=== PATIENT | female | born 1950 | race Caucasian/White ===

== ENCOUNTER → 2018-10-01 | Outpatient (CLI) | payer MEDICARE ==
--- NOTE | 2018-10-02 14:29 | MM ---
Reason for exam: screening (asymptomatic). Last mammogram was performed 3 years ago. History: Patient is postmenopausal. Family history of breast cancer in maternal aunt at age 65. Benign cyst aspiration of the left breast, December 18, 2000. Cyst aspiration of the left breast. Physical Findings: A clinical breast exam by your physician is recommended on an annual basis and results should be correlated with mammographic findings. MG 3D Screening Mammo W/Cad Bilateral CC and MLO view(s) were taken. Prior study comparison: October 13, 2015, bilateral MG screening mammo w CAD. June 29, 2014, bilateral MG screening mammo w CAD. The breast tissue is heterogeneously dense. This may lower the sensitivity of mammography. No suspicious abnormality. No significant changes when compared with prior studies. ASSESSMENT: Negative, BI-RAD 1 RECOMMENDATION: Routine screening mammogram of both breasts in 1 year.
== END | disposition home or self-care (01) ==
LOC: RADMAMWWP 08:04
PROVIDERS: ATTEND Internal Medicine
DX: Z12.31 Encounter for screening mammogram for malignant neoplasm of breast (principal)
CPT/HCPCS: 77063; 77067

== ENCOUNTER → 2019-07-18 | Outpatient (CLI) | payer MEDICARE ==
--- NOTE | 2019-07-18 16:31 | CT ---
EXAMINATION TYPE: CT wrist RT wo con DATE OF EXAM: 07/18/2019 COMPARISON: Plain film not submitted HISTORY: Right wrist pain after fall. CT DLP: 148.6 mGycm Automated exposure control for dose reduction was used. Helical imaging through the right wrist, thre e-dimensional reconstructions as well as coronal and sagittal reconstructions. FINDINGS: There is a comminuted intra-articular displaced distal right radial fracture. Comminuted distal ulnar fracture also present. There is associated soft tissue swelling present. IMPRESSION: DISTAL RADIUS AND ULNAR FRACTURES.
== END | disposition home or self-care (01) ==
LOC: RADCTMAIN 15:25
PROVIDERS: ATTEND Orthopaedic Surgery
DX: S52.201A Unspecified fracture of shaft of right ulna, initial encounter for closed fracture (principal); S52.501A Unspecified fracture of the lower end of right radius, initial encounter for closed fracture

== ENCOUNTER → 2019-07-23 | Outpatient (CLI) | payer MEDICARE | END | disposition home or self-care (01) | LOC: LABPAT 15:02 | PROVIDERS: ATTEND Orthopaedic Surgery | DX: Z01.818 Encounter for other preprocedural examination (principal) | CPT/HCPCS: 93005 ==

== ENCOUNTER 2019-07-25 10:54 | Day surgery (SDC) | payer MEDICARE ==
[2019-07-23 10:57] VITALS: BMI 29.2
[~2019-07-25 10:54] MED LIST: DEXAMETHASONE SOD PHOSPHATE 10 MG/ML 1 ML VIAL IV ONE; HYDROmorphone 0.5 MG/0.5 ML SYRINGE IVP PRN; LACTATED RINGERS 1,000 ML IV SCH; MIDAZOLAM 2 MG/2 ML VIAL IV PRN; ONDANSETRON 4 MG/2 ML VIAL IVP ONE
[2019-07-25] MEDS ORDERED: LIDOCAINE 1% 20 ML VIAL (10MG/ML) FOR IV START INTRADERMA ONE (11:25)
[2019-07-25] MEDS: fentaNYL (PF) 50 MCG/ML 2 ML AMP IVP ONE ×2 (11:40→11:48)
--- NOTE | 2019-07-25 12:04 | P.ANPRN ---
Procedure Note - Anesthesia - Nerve Block Performed Right Supraclavicular Single Time Out Performed: Yes Date of Procedure: 07/25/19 Procedure Start Time: 11:38 Procedure Stop Time: 11:48 Location of Patient Procedure: PreOp Indication: Acute Post-Operative Pain Specifically requested for management of pain by DrFeng: Jose Huerta Sedation Type: Sedate with meaningful contact maintained Position: Supine Catheter: None Needle Types: Pajunk Needle Gauge: 21 Ultrasound used to visualize needle placement: Yes Ultrasound used to observe medication spread: Yes Injectate: 0.5% Ropivacaine (see comment for volume) (20cc with 4mg decadron) Blood Aspirated: No Pain Paresthesia on Injection Noted: No Resistance on Injection: Normal Image Stored and Saved: Yes Events: Uneventful and Well Tolerated
[2019-07-25] MEDS ORDERED: ROPIVACAINE 5 MG/ML 30 ML VIAL ONE (12:22)
[2019-07-25] MEDS ORDERED: KETAMINE 10 MG/ML 20 ML VIAL ONE (12:22)
[2019-07-25] MEDS ORDERED: PROPOFOL 10 MG/ML 20 ML VIAL IV ONE (12:22)
[2019-07-25] MEDS ORDERED: MIDAZOLAM 2 MG/2 ML VIAL ONE (12:22)
[2019-07-25] MEDS ORDERED: fentaNYL (PF) 50 MCG/ML 2 ML AMP ONE (12:22)
[2019-07-25] MEDS ORDERED: BUPIVACAINE (PF) 0.5% 30 ML VIAL SQ ONE ×3 (12:53→15:51)
[2019-07-25] MEDS ORDERED: LIDOCAINE 1%-EPI 1:100,000 20 ML VIAL SQ ONE ×3 (12:53→15:51)
[2019-07-25] MEDS ORDERED: LACTATED RINGERS 1,000 ML IV ONE (14:50)
--- NOTE | 2019-07-25 15:53 | XR ---
EXAMINATION TYPE: XR wrist complete RT, FL guidance operating room DATE OF EXAM: 07/25/2019 CLINICAL HISTORY: Open reduction internal fixation of a right wrist fracture. Fluoroscopic documentat ion. TECHNIQUE: Fluoroscopy. COMPARISON: None. FINDINGS: Fluoroscopic guidance was provided during procedure performed by Dr. Huerta. A total of 1 minute and 44 seconds of fluoroscopic time was utilized during the procedure and 7 spot images w as acquired during open reduction internal fixation of right wrist fractures. IMPRESSION: As Above.
[2019-07-25 16:23] VITALS: TEMP 97.6
[2019-07-25 17:11] VITALS: PULSE 74; RESP 16
[2019-07-25 17:26] VITALS: BP 145/64
--- NOTE | 2019-07-25 17:46 | P.OP ---
Date of Procedure: 07/25/19 Preoperative Diagnosis: 1. Comminuted, intra-articular right distal radius fracture 2. Right ulnar neck fracture Postoperative Diagnosis: 1. Comminuted, intra-articular right distal radius fracture 2. Right ulnar neck fracture Procedure(s) Performed: 1. Open reduction and internal fixation of comminuted, intra-articular right distal radius fracture (greater than 3 parts) 2. Internal fixation of right ulnar neck fracture Implants: Biomet Crosslock DVR locking volar distal radius plate with locking and cortical screws; micro Acutrac screws (2) Anesthesia: MAC, regional, local Surgeon: Jose Huerta Powder Guard #1: Lupis Barnes IV fluids (ml): 10 Condition: stable Disposition: PACU Indications for Procedure: The patient is a very pleasant 69-year-old female who sustained a comminuted right distal radius fracture with an associated ulnar neck fracture after a mechanical fall. Treatment options (and associated risks and benefits) were discussed in the office and surgical treatment was recommended. In preop, additional questions were answered. She wished to proceed with surgery. Consent forms were signed. The operative site was confirmed and marked. Description of Procedure: The patient was administered a regional nerve block by the anesthesia team then brought to the operating suite. The patient was positioned supine with the operative limb on an arm board. All bony prominences were well padded. Monitored anesthesia was administered uneventfully. Prophylactic IV antibiotics were administered. A tourniquet was placed on the operative arm which was then prepped and draped in standard, sterile fashion. A timeout was performed, confirm patient identifiers, the operative side, sites and the procedures to be performed: All team members expressed agreement. The limb was exsanguinated with an Esmarch and the tourniquet was inflated. The fractures were assessed with intraoperative fluoroscopy. Comminution of the dorsal metaphysis and radial column was again noted. Fracture alignment im proved with manual reduction. A standard volar FCR approach was initially utilized. The skin was incised sharply and subcutaneous tissue were spread, coagulating superficial vessels as needed. The FCR sheath was incised and the tendon was mobilized. Blunt dissection proceeded down to the pronator quadratus. This was sharply released along its radial border and & elevated ulnarly. The fracture site was identified. There was a large longitudinal split running along the radial styloid and a transverse fracture across the metaphysis. There was a separate butterfly fragment involving the ulnar metaphysis below the lunate fossa. Manual reduction was attempted but residual deformity remained. The brachioradialis tendon was identified and released from its insertion to remove this as a deforming force, taking care to protect the first dorsal compartment tendons. A Carson elevator was inserted through the metaphyseal fracture site in an attempt to reduce the displaced dorsal fragments; however, this was unsuccessful and the decision was made to proceed with a secondary dorsal exposure. A midline longitudinal incision was marked over the dorsal wrist. The skin was sharply incised and full-thickness skin flaps were elevated. Superficial vessels were coagulated with electrocautery. A large displaced fragment involving Lilly's tubercle was identified protruding slightly through the extensor retinaculum. A longitudinal incision was made in the retinaculum. The EPL tendon was identified, entrapped within the fracture site below Lilly's fragment. The fragments were mobilized and the tendon was released. There was some mild fraying but but no obvious damage to the tendon substance. The frayed edges were trimmed. The dorsal fragments were manipulated and manually reduced. There was marked comminution of the metaphysis and the fracture was grossly unstable. A manual reduction maneuver was again repeated and good initial alignment was achieved and confirmed on imaging. Two 0.062 K wires were inserted percutaneously into the radial styloid and advanced across the metaphysis for provisional stability. A plate was selected, based on the patients anatomy and fracture pattern. This was positioned on the volar radius and provisionally pinned in place with K- wires. Its position was assessed on imaging and adjusted until satisfactory. A cortical screw was drilled, measured and inserted into the oblong hole of the shaft. Locking screws were drilled, measured and inserted distally, confirming length and trajectory with fluoroscopy. All provisional K-wires were removed. Two additional cortical screws were drilled and inserted to further secure the plate to the metaphysis. The wounds were irrigated and covered and attention was then turned to the distal ulna. Once the distal radius fracture was reduced and stabilized, the distal ulna fracture was nearly anatomically aligned. Residual displacement corrected with manual reduction. Small incisions were made just distal to the tip of the styloid and along the ulnar metaphysis. The subcutaneous tissues were bluntly spread to protect adjacent sensory nerves. Using fluoroscopic guidance, a K wire for an Acutrac headless compression screw was drilled across the fracture site and into the ulnar head through a soft tissue guide. A second K wire was inserted in a similar fashion down the styloid and into the metaphysis. Alignment and position of both wires was confirmed on imaging. The screw lengths were measured measured off the guidewires. The cannulated drill was inserted over the guidewires and advanced across the fracture site. The appropriate screws were selected and inserted over the guidewires. Final x-rays were obtained which revealed excellent reduction of both fractures with good latter-day of radial height, inclination and volar tilt as well as reduction of the DRUJ. A 20-degree inclined lateral view was obtained to confirm extra-articular screw placement. The wrist was then ranged under live fluoroscopy - no motion of the fracture fragments or fixation construct was appreciated (in the radius or ulna). The tourniquet was released after 120 minutes at 250 mmHg and was not used for the remainder the case. Hemostasis was obtained with electrocautery. The wounds were thoroughly irrigated with normal saline. The extensor retinaculum was repaired with interrupted 2-0 Vicryl sutures with the EPL tendon left superficial. Excellent excursion of the tendon was noted with passive motion. The pronator was loosely repaired over the plate with interrupted 2-0 Vicryl sut ures. The subcutaneous tissues dorsally and volarly were reapproximated with interrupted 3-0 Vicryl suture. The incisions were closed with interrupted 4-0 nylon suture. Local anesthetic with epinephrine was injected into the perioperative subcutaneous tissues for adjunctive postoperative pain control and hemostasis. A sterile dressing was applied followed by a resting volar splint. All sponge, n eedle and instrument counts were correct at the end of the case. The patient tolerated the procedure well and was taken to the recovery room in stable condition.
== END 2019-07-25 17:38 | disposition home or self-care (01) ==
LOC: OR 10:54
PROVIDERS: ATTEND Orthopaedic Surgery
DX: S52.571A Other intraarticular fracture of lower end of right radius, initial encounter for closed fracture (principal); S52.691A Other fracture of lower end of right ulna, initial encounter for closed fracture; I10 Essential (primary) hypertension; K21.9 Gastro-esophageal reflux disease without esophagitis; Z88.5 Allergy status to narcotic agent; Z87.891 Personal history of nicotine dependence; Z98.890 Other specified postprocedural states; Z79.899 Other long term (current) drug therapy; Z79.891 Long term (current) use of opiate analgesic; Z98.811 Dental restoration status; Z83.3 Family history of diabetes mellitus; W19.XXXA Unspecified fall, initial encounter; Y92.014 Private driveway to single-family (private) house as the place of occurrence of the external cause
CPT/HCPCS: 25609; 25652; 64415; 73110; C1713; J2250; J1100; J0690; J2405; J3010; J2795; J2704; 64413

== ENCOUNTER → 2019-08-04 | Outpatient (CLI) | payer MEDICARE | END | disposition home or self-care (01) | LOC: LABWHC1 13:04 | PROVIDERS: ATTEND Orthopaedic Surgery | DX: M25.531 Pain in right wrist (principal); S52.571D Other intraarticular fracture of lower end of right radius, subsequent encounter for closed fracture with routine healing; S52.691D Other fracture of lower end of right ulna, subsequent encounter for closed fracture with routine healing; Z48.89 Encounter for other specified surgical aftercare; E55.9 Vitamin D deficiency, unspecified | CPT/HCPCS: 36415; 82306 ==

== ENCOUNTER → 2019-10-06 | Outpatient (CLI) | payer MEDICARE ==
--- NOTE | 2019-10-06 09:46 | CT ---
EXAMINATION TYPE: CT wrist RT wo con DATE OF EXAM: 10/06/2019 COMPARISON: Preoperative CT of the right wrist 07/18/2019 HISTORY: Pain Rt Wirst CT DLP: 100.1 mGycm Automated exposure control for dose reduction was used. Unenhanced CT of the right wrist was performe d with bone and soft tissue window settings submitted. FINDINGS: Fixation plate and screws noted distal radius with 2 fixation screws within the distal ulna. There is disuse bony osteopenia identified. There is incomplete union noted at the metaphyseal component of t he distal radial fracture. Remaining fracture sites demonstrate the solid callus formation and approp riate healing. No acute fractures are identified at this time. IMPRESSION: 1. Cyst operative plate fixation distal radial fracture with screw fixation distal ulnar fracture. As noted there is disuse osteopenia. Incomplete union noted at the metaphyseal component of the distal radial fracture.
== END ==
LOC: RADCTMAIN 08:38
PROVIDERS: ATTEND Orthopaedic Surgery
DX: S52.501D Unspecified fracture of the lower end of right radius, subsequent encounter for closed fracture with routine healing (principal); S52.601A Unspecified fracture of lower end of right ulna, initial encounter for closed fracture; M85.80 Other specified disorders of bone density and structure, unspecified site

== ENCOUNTER 2019-10-28 08:06 | Day surgery (SDC) | payer MEDICARE ==
[2019-10-27 10:45] VITALS: BMI 29.2
[~2019-10-28 08:06] MED LIST changes: +LIDOCAINE 1% 20 ML VIAL (10MG/ML) FOR IV START INTRADERMA PRN; +SCOPOLAMINE 1.5MG/72HR PATCH TRANSDERM ONE
[2019-10-28] MEDS ORDERED: fentaNYL (PF) 50 MCG/ML 2 ML AMP IV ONE (08:57)
[2019-10-28] MEDS ORDERED: MIDAZOLAM 2 MG/2 ML VIAL IV ONE (08:57)
[2019-10-28] MEDS ORDERED: fentaNYL (PF) 50 MCG/ML 2 ML AMP ONE (11:05)
[2019-10-28] MEDS ORDERED: LIDOCAINE 1% INJ 10MG/ML (20 ML MDV) ONE (11:05)
[2019-10-28] MEDS ORDERED: MIDAZOLAM 2 MG/2 ML VIAL ONE (11:05)
[2019-10-28] MEDS ORDERED: HYDROmorphone (PF) 1 MG/ML ONE (11:05)
[2019-10-28] MEDS ORDERED: ROPIVACAINE 5 MG/ML 30 ML VIAL ONE (11:05)
[2019-10-28] MEDS ORDERED: ROCURONIUM BROMIDE 10 MG/ML 10 ML VIAL IV ONE (11:05)
[2019-10-28] MEDS ORDERED: PROPOFOL 10 MG/ML 20 ML VIAL IV ONE (11:05)
[2019-10-28] MEDS ORDERED: LIDOCAINE 2%-EPI 1:100,000 20 ML VIAL ONE (11:05)
[2019-10-28] MEDS ORDERED: ePHEDrine SULFATE/0.9% NACL/PF 50 MG/5 ML SYRINGE IV ONE (11:05)
[2019-10-28] MEDS ORDERED: SUCCINYLCHOLINE CHLORIDE VIAL 200 MG/10 ML VIAL IV ONE (11:05)
[2019-10-28] MEDS ORDERED: LACTATED RINGERS 1,000 ML IV ONE (11:37)
--- NOTE | 2019-10-28 12:20 | P.ANPRN ---
Procedure Note - Anesthesia - Nerve Block Performed Right Supraclavicular Single Time Out Performed: Yes ([id number]) Date of Procedure: 10/28/19 Procedure Start Time: 08:57 Procedure Stop Time: 09:03 Location of Patient: PreOp Indication: Acute Post-Operative Pain, Requested by Surgeon Specifically requested for management of pain by : Jose Huerta Sedation Type: Sedate with meaningful contact maintained Preparation: Sterile Prep Position: Supine Catheter: None Needle Types: Pajunk Needle Gauge: 21 Ultrasound used to visualize needle placement: Yes Ultrasound used to observe medication spread: Yes Injectate: Other (see comment) (Lido 2% with Epi 15cc and Ropi 0.5% 15cc) Blood Aspirated: No Pain Paresthesia on Injection Noted: No Resistance on Injection: Normal Image Stored and Saved: Yes Events: Uneventful and Well Tolerated
[2019-10-28 14:13] VITALS: TEMP 97.7
--- NOTE | 2019-10-28 14:33 | FL ---
EXAMINATION TYPE: FL guidance operating room, XR wrist complete RT DATE OF EXAM: 10/28/2019 CLINICAL HISTORY: Fluoroscopic documentation during right wrist hardware replacement. TECHNIQUE: Fluoroscopy. COMPARISON: None. FINDINGS: Fluoroscopic guidance was provided during pain relief procedure performed by Dr. Fredy knight. A total of 39 seconds of fluoroscopic time was utilized during the procedure and 4 spot images ar e acquired. Images acquired shows right wrist hardware replacement. IMPRESSION: As Above.
[2019-10-28] MEDS ORDERED: ONDANSETRON 4 MG/2 ML VIAL IVP ONE (16:20)
[2019-10-28 16:57] VITALS: BP 123/79; PULSE 85; RESP 16
--- NOTE | 2019-11-04 12:25 | P.OP ---
Date of Procedure: 10/28/19 Preoperative Diagnosis: 1. Painful retained hardware right distal ulna 2. History of right distal radius and distal ulna fractures, status post open reduction & internal fixation 3. Postoperative tendon adhesions and contractures - right hand & wrist Postoperative Diagnosis: 1. Painful retained hardware right distal ulna 2. History of right distal radius and distal ulna fractures, status post open reduction & internal fixation 3. Intra-operative kathia-implant fracture - right radial shaft 4. Postoperative tendon adhesions and contractures - right hand & wrist 5. Incomplete healing of right distal radius fracture Procedure(s) Performed: 1. Removal of hardware right distal radius and distal ulna 2. Manipulation under anesthesia - right hand and wrist 3. Open reduction & internal fixation of kathia-implant fracture of the right rad ial shaft 4. Open lysis of adhesions right wrist 5. Flexor tenolysis right FCR, FPL, FDS and FDP tendons 6. Median neurolysis Implants: Acu-Loc 2 right VDR proximal plate (standard, long) with VDR neutral extension plate Explants: Acutrac screws (2), Biomet Crosslock volar distal radius plate and screws Anesthesia: marge LAROSE Surgeon: Jose Huerta Engineering Vice President #1: Lupis Barnes Estimated Blood Loss (ml): 20 Condition: stable Disposition: PACU Indications for Procedure: The patient is a 69-year-old female who initially sustained displaced fractures of her right distal radius and distal ulna. She previously underwent open reduction and internal fixation for both. During her recovery, she developed substantial adhesions and contractures. In addition, the ulnar hardware caused persistent irritation. Treatment options (and associated risks and benefits) were discussed in the office. She elected to proceed with removal of hardware, manipulation under anesthesia and lysis of adhesions. We specifically discussed the risks of persistent pain, iatrogenic fracture and recurrent adhesions/contractures, as well as the importance of immediate postoperative hand therapy. In preop, additional questions were addressed. She expressed understanding, acceptance of the risks and wished to proceed with surgery. Consent forms were signed. The operative site was confirmed and marked. Description of Procedure: The patient was administered a regional nerve block by the anesthesia team and then brought to the operating suite. She was positioned supine with the operative limb on a hand table. All bony prominences were well-padded. Anesthesia was administered uneventfully. Prophylactic IV antibiotics were administered. A tourniquet was placed on the right arm, which was then prepped and draped in standard, sterile fashion. A timeout was performed, confirming patient identifiers, the operative side, the sites and the procedures to be performed: all team members expressed agreement. The limb was exsanguinated with an Esmarch and the tourniquet was inflated. The screws in the distal ulna were localized with fluoroscopy. The previous inc isions were utilized. Spreading dissection proceeded down to the screw heads, taking care to protect adjacent sensory nerve branches. Both screw heads were visually identified and removed without difficulty. The skin over the dorsal wrist was quite adherent to the underlying subcutaneous tissues. Working through the ulnar incisions, subcutaneous tunnels were made with spreading dissection and the dorsal skin was released and mobilized. The incisions were irrigated with normal saline and closed with interrupted 4-0 nylon sutures. Substantial contractures were present, involving the radiocarpal and distal radioulnar joints as well as the PIP and MCP joints. Sequential manipulations were performed, starting with individual fingers, progressing to intrinsic stretches, and the capsular contractures of the carpus were addressed last. Audible and palpable release of adhesions was noted and good improvement in motion was achieved. The hand could be completely closed passively into a flat fist. However, while performing a slow, static stretch of the dorsal wrist capsule, a pop was felt. X-rays demonstrated a kathia-implant fracture at the level of the most proximal screw in the radial plate. The previous volar incision was sharply reopened and extended proximally. There was abundant scar tissue, both between the skin and subcutaneous tissues, as well as between the flexor muscle/tendons. The median nerve was identified proximally. It was firmly encased dense fibrous tissue. Both the main nerve and the palmar cutaneous branch were carefully dissected free and a neurolysis was performed. Thickened tenosynovium and additional adhesions were identified within and around the FDS and FDP tendons. A combination of sharp and blunt dissection was used to resect the scar tissue and release the adhesions. The FPL was identified and found to be scarred down to the plate at the musculotendinous junction. This was sharply released and mobilized. The volar plate was exposed. A complete fracture was identified through the most proximal screw hole. The screws were removed without difficulty and the plate was explanted. Curettes and rongeurs were used to resect the fibrous tissue below the plate. Incomplete healing of the distal radial metaphysis was noted. The small areas that had yet to fill in with bone were carefully debrided with curettes. Manual manipulation of the articular surface with a [place] and passive mobilization of the wrist showed no motion at the metaphysis. The [facility] 2 VDR extension plate was selected and assembled. This was positioned on the volar radius and held to the shaft with a reduction clamp. Plate position and fracture reduction were assessed on imaging. These were adjusted until satisfactory and then the plate was pinned in place with K wires. Locking screws were drilled, measured and inserted to secure the plate distally, with cortical screws inserted to fix the plate to the shaft. The wound was copiously irrigated with normal saline. Demineralized bone matrix was packed into the metaphysis, at the site of the incompletely healed fracture. This was also placed around the fracture site at the shaft. Final x-rays were obtained. The wrist was passively ranged in flexion, extension and rotation, demonstrating good overall motion without focal deficit. The wrist was then stressed under live fluoroscopy: No motion was identified at the metaphysis, radial shaft fracture site or at the distal ulna. The fixation construct appeared very stable. The tourniquet was released after 94 minutes at 250 mmHg and was not utilized for the remainder of the case. Hemostasis was obtained with manual pressure and electrocautery. The wounds were thoroughly irrigated with normal saline. The FPL origin was repaired over the plate with 2-0 Vicryl suture. The volar subcutaneous tissues were reapproximated with interrupted 3-0 Vicryl sutures. The incisions were closed with 4-0 nylon. Local anesthetic with epinephrine was injected into the perioperative subcutaneous tissues for adjunctive postoperative pain control and hemostasis. Soft, sterile dressings were applied. All sponge, needle and instrument counts were correct at the end of the case. The patient tolerated the procedure well and was taken to the recovery room in stable condition.
--- NOTE | 2019-11-12 00:59 | CDI ---
Outpatient Documentation Clarification Form Date: 11/12/2019 CDS/Weld Technician Name: Carissa Lovett Phone: If any questions, call Jeanie Sy Electric Meter Installer at [phone] Patient Name: Diana Isbell Admit Date: 10/28/2019 Discharge Date: 10/28/2019 ATTENTION: The [facility] Coding Staff appreciate your assistance in clarifying documentation. Please respond to the clarification below the line at the bottom and electronically sign. The [facility] Coding staff will review the response and follow-up if needed. Please note: Queries are made part of the Legal Health Record. If you have any questions, please contact the Electric Meter Installer. Dear Bradley Quintana Mark A As per your Operative note documentation Flexor Tenolysis Right FCR, FPL, FDS and FDP tendons along with some other procedures were performed. Please clarify if the FCR was also done, because there was no documentation that stated tenolysis was performed on FCR. 1. YES X 2. NO Thank you for your kind consideration. Yes, tenolysis was also performed on the FCR (flexor carpi radialis) tendon. [facility]
== END 2019-10-28 17:23 | disposition home or self-care (01) ==
LOC: OR 08:06
PROVIDERS: ATTEND Orthopaedic Surgery
DX: T84.112A Breakdown (mechanical) of internal fixation device of bone of right forearm, initial encounter (principal); T84.84XA Pain due to internal orthopedic prosthetic devices, implants and grafts, initial encounter; S52.571D Other intraarticular fracture of lower end of right radius, subsequent encounter for closed fracture with routine healing; S52.691D Other fracture of lower end of right ulna, subsequent encounter for closed fracture with routine healing; M65.831 Other synovitis and tenosynovitis, right forearm; M65.841 Other synovitis and tenosynovitis, right hand; M62.441 Contracture of muscle, right hand; I10 Essential (primary) hypertension; Z88.5 Allergy status to narcotic agent; Z87.891 Personal history of nicotine dependence; Z79.1 Long term (current) use of non-steroidal anti-inflammatories (NSAID); Z79.899 Other long term (current) drug therapy; Y83.1 Surgical operation with implant of artificial internal device as the cause of abnormal reaction of the patient, or of later complication, without mention of misadventure at the time of the procedure; Z83.3 Family history of diabetes mellitus
CPT/HCPCS: 64721; 20680 ×2; 25515; 25295 ×9; 64415; 76942; 73110; C1713 ×2; J2250; J0330; J1100; J0690; J2405; J2001; J3010; J1170; J2795; J2704